=== PATIENT | female | born 1955 | race Caucasian/White ===

== ENCOUNTER 2017-02-20 10:49 | Inpatient (IN) ==
--- NOTE | 2017-02-19 21:37 | Discharge Summary ---
<Ora Day - Last Filed: 02/19/17 21:35> Date of Encounter: 02/19/17 - Discharge Diagnosis (1) Arthritis of left hip Priority: Primary Status: Acute (2) Status post total hip replacement, left Priority: Primary Status: Acute (3) CAD (coronary artery disease) Priority: Secondary Status: Chronic Qualifiers: Coronary Disease-Associated Artery/Lesion type: bypass graft [place] vs. transplanted heart: [place] heart Associated angina: without angina Qualified Code(s): I25.810 - Atherosclerosis of coronary artery bypass graft(s) without angina pectoris (4) HTN (hypertension) Priority: Secondary Status: Chronic Qualifiers: Hypertension type: essential hypertension Qualified Code(s): I10 - Essential (primary) hypertension (5) DMII (diabetes mellitus, type 2) Priority: Secondary Status: Chronic Qualifiers: Diabetes mellitus complication status: without complication Diabetes mellitus halfway insulin use: unspecified termite control service representative insulin use status Qualified Code(s): E11.9 - Type 2 diabetes mellitus without complications (6) History of CVA (cerebrovascular accident) Priority: Secondary Status: Chronic (7) History of SD (myocardial infarction) Priority: Secondary Status: Chronic (8) Left leg weakness Priority: Secondary Status: Chronic - Discharge Medications Home Medications: Albuterol Sulfate [Albuterol Inhaler] 2 puff IH BID PRN 06/20/15 [History] Beclomethasone Diprop 80mcg [QVAR 80 mcg] 2 puff IH BIDR 06/20/15 [History] Clopidogrel [Plavix] 75 mg PO DAILY 06/20/15 [History] GlipiZIDE [Glucotrol] 2.5 mg PO DAILY 06/20/15 [History] Isosorbide MONOnitrate (24 HR) [Imdur] 30 mg PO DAILY 06/20/15 [History] Lisinopril [Zestril] 5 mg PO DAILY 06/20/15 [History] Montelukast [Singulair] 10 mg PO HS 06/20/15 [History] Nitroglycerin [Nitrostat] 0.4 mg SL Q5M PRN 06/20/15 [History] Ropinerole [Requip] 2 mg PO HS 06/20/15 [History] Rosuvastatin [Crestor] 40 mg PO HS 12/12/15 [History] Topiramate [Topamax] 75 mg PO BID 06/20/15 [History] Docusate [Colace] 100 mg PO BID 09/23/15 [History] Mirtazapine 7.5 mg PO HS 09/23/15 [History] Aspirin Enteric Coated [Aspirin EC] 325 mg PO DAILY #21 02/19/17 [Rx] OxyCODONE Immed Rel [Roxicodone 5 MG] 5 - 10 mg PO Q6HR PRN #40 tablet 02/19/17 [Rx] Aspirin [Lo-Dose Aspirin EC] 81 mg PO DAILY 02/20/17 [History] Cetirizine HCl/Pseudoephedrine [Cetirizine-Pse ER 5-120 mg Tab] 1 each PO DAILY 02/20/17 [History] Omeprazole [PriLOSEC] 20 mg PO DAILY 02/20/17 [History] Tizanidine HCl 4 mg PO TID PRN 02/20/17 [History] Allergies/Adverse Reactions: Allergies carbamazepine [From Tegretol] Allergy (Verified 02/20/17 11:22) Hives atorvastatin [From Lipitor] Adverse Reaction (Verified 02/20/17 11:22) See Comments liver damage divalproex sodium [From Depakote] Adverse Reaction (Verified 02/20/17 11:22) See Comments pancreatic damage levetiracetam [From Keppra] Adverse Reaction (Verified 02/20/17 11:22) Headache Primary care physician: Naman Lowery DO - Patient Status Disposition: Transfer Inpatient Rehab Fac Condition: Good - Discharge Instructions Follow Up With: Naman oLwery DO [Primary Care Provider] - - Hospital Course Hospital course: Ms. Thomson is a 62 year old female - Time Spent with Patient Total time spent providing and/or coordinating discharge services: <Jamar Wisdom - Last Filed: 02/22/17 06:21> Date of Encounter: 02/22/17 Time of Encounter: 06:20 - Discharge Diagnosis (1) Status post total hip replacement, left Priority: Primary Status: Acute (2) CAD (coronary artery disease) Priority: Secondary Status: Chronic Qualifiers: Coronary Disease-Associated Artery/Lesion type: bypass graft [place] vs. transplanted heart: [place] heart Associated angina: without angina Qualified Code(s): I25.810 - Atherosclerosis of coronary artery bypass graft(s) without angina pectoris (3) HTN (hypertension) Priority: Secondary Status: Chronic Qualifiers: Hypertension type: essential hypertension Qualified Code(s): I10 - Essential (primary) hypertension (4) DMII (diabetes mellitus, type 2) Priority: Secondary Status: Chronic Qualifiers: Diabetes mellitus complication status: without complication Diabetes mellitus termite control service representative insulin use: unspecified termite control service representative insulin use status Qualified Code(s): E11.9 - Type 2 diabetes mellitus without complications (5) History of CVA (cerebrovascular accident) Priority: Secondary Status: Chronic (6) History of SD (myocardial infarction) Priority: Secondary Status: Chronic (7) Left leg weakness Priority: Secondary Status: Chronic (8) Avascular necrosis of bone of left hip Priority: Primary Status: Chronic (9) Acute blood loss anemia Priority: Primary Status: Acute Primary care physician: Naman Lowery DO - Patient Status Functional capacity at discharge: uses cane/walker Overall status at discharge: patient is progressing back to baseline - Hospital Course Hospital course: Ms. Thomson is a 62 year old female Status post left total hip replacement. Patient with a hemoglobin 8.0 received 2 units of packed red blood cells. Discharge stable condition received antibiotics and physical therapy postoperatively. Follow-up in A week. - Time Spent with Patient Total time spent providing and/or coordinating discharge services:
[2017-02-20] MEDS ORDERED: CeFAZolin Pre 2,000 MG/100 ML 2,000 MG/100 ML BAG IVPB ONE (11:10)
[2017-02-20] MEDS ORDERED: Albuterol 2.5 MG/3 ML NEBULIZER IH ONE (11:10)
--- NOTE | 2017-02-20 11:26 | Physician Discharge Referral ---
ExtendedCare Referral Info Transfer To: [facility] Provider in Charge after Transfer: PCP Institutional Level of Care: Skilled - Diagnosis (1) Arthritis of left hip Priority: Primary Status: Acute (2) Status post total hip replacement, left Priority: Primary Status: Acute (3) CAD (coronary artery disease) Priority: Secondary Status: Chronic (4) HTN (hypertension) Status: Chronic (5) DMII (diabetes mellitus, type 2) Priority: Secondary Status: Chronic (6) History of CVA (cerebrovascular accident) Priority: Secondary Status: Chronic (7) History of SD (myocardial infarction) Priority: Secondary Status: Chronic (8) Left leg weakness Priority: Secondary Status: Chronic Expected Duration of Placement: < 30 days Prognosis: Good Aware of Diagnosis: Patient Aware of Prognosis: Patient - Transfer Medications Prescriptions: OxyCODONE Immed Rel [Roxicodone 5 MG] 5 - 10 mg PO Q6HR PRN #40 tablet PRN Reason: Pain Aspirin Enteric Coated [Aspirin EC] 325 mg PO DAILY #21 Home Medications: Albuterol Sulfate [Albuterol Inhaler] 2 puff IH BID 06/20/15 [History] Beclomethasone Diprop 80mcg [Qvar 80 mcg] 2 puff IH BIDR 06/20/15 [History] Cetirizine HCl [Zyrtec] 10 mg PO DAILY 06/20/15 [History] Clopidogrel [Plavix] 75 mg PO DAILY 06/20/15 [History] Cyanocobalamin/FA/Pyridoxine [Folbic Tablet] 1 tab PO DAILY 06/20/15 [History] Divalproex (12 HR) [Depakote (12 HR)] 250 mg PO BID 06/20/15 [History] Divalproex (12 HR) [Depakote (12 HR)] 500 mg PO BID 06/20/15 [History] Garlic 1,000 mg PO DAILY 06/20/15 [History] GlipiZIDE [Glucotrol] 2.5 mg PO DAILY 06/20/15 [History] Isosorbide MONOnitrate (24 HR) [Imdur] 30 mg PO DAILY 06/20/15 [History] Lisinopril [Zestril] 5 mg PO DAILY 06/20/15 [History] Montelukast [Singulair] 10 mg PO DAILY 06/20/15 [History] Nitroglycerin [Nitrostat] 0.4 mg SL Q5M PRN 06/20/15 [History] Pantoprazole Sodium [Protonix] 40 mg PO DAILY 06/20/15 [History] Ropinerole [Requip] 2 mg PO HS 06/20/15 [History] Rosuvastatin [Crestor] 40 mg PO HS 06/20/15 [History] Topiramate [Topamax] 50 mg PO HS 06/20/15 [History] Docusate [Colace] 100 mg PO BID 09/23/15 [History] Ezetimibe [Zetia] 10 mg PO DAILY 09/23/15 [History] Mirtazapine 7.5 mg PO HS 09/23/15 [History] Ondansetron ODT [Zofran ODT] 4 mg SL Q8HR PRN #10 tab.rapdis 09/23/15 [Rx] Zonisamide [Zonegran] 100 mg PO DAILY 09/23/15 [History] Ondansetron ODT [Zofran ODT] 8 mg SL Q12HR PRN #5 tab.rapdis 12/02/15 [Rx] Aspirin Enteric Coated [Aspirin EC] 325 mg PO DAILY #21 02/19/17 [Rx] OxyCODONE Immed Rel [Roxicodone 5 MG] 5 - 10 mg PO Q6HR PRN #40 tablet 02/19/17 [Rx] Allergies/Adverse Reactions: Allergies carbamazepine [From Tegretol] Allergy (Verified 02/20/17 11:22) Hives atorvastatin [From Lipitor] Adverse Reaction (Verified 02/20/17 11:22) See Comments liver damage divalproex sodium [From Depakote] Adverse Reaction (Verified 02/20/17 11:22) See Comments pancreatic damage levetiracetam [From Keppra] Adverse Reaction (Verified 02/20/17 11:22) Headache - Respiratory Orders None Smoking Cessation: Smoking cessation has been advised. For more information, call the [place] Tobacco Quit Line at 6-252-BDEU-NOW. - Ancillary Orders May use pressure relief devices daily prn, May go on REUBEN w/family/respon republican w /meds at nurse discretion PRN - Mobility Orders Chair, Ambulate - Rehabiliation Orders Rehab Potential: Good Rehab Orders: ROM Exercises, Evaluation for Physical Therapy, Evaluation for Occupational Therapy - Treatments Skin tear care topically daily PRN per policy List/Other: Left THR Opsite dressing, leave intact until first post-operative visit. If dressing becomes >50% saturated, contact office, remove dressing and place appropriate dressing in its place. Do not allow for dressing to get wet. Vincent in place. Plan to remove day #14-21 PT: Precautions x 6 weeks - Total Hip Precautions. Apply cold therapy wrap 3-6x/day for 20 minutes at a time. Encourage ambulation throughout the day and incentive spirometer 10x/hour. Elevate affected extremity above heart as tolerated. Brace: Keep hip abduction brace on at night x 6 weeks. - Diet Orders Regular CERTIFICATION: I certify that the transfer of the above named patient to an Extended Care Facility is necessary for the continuing treatment of the diagnosis listed. The above information is true and accurate reflection of patient's current condition. Confidential - Redisclosure prohibited without a patient's written consent.
--- NOTE | 2017-02-20 11:30 | History & Physical Report ---
Date of Encounter: 02/20/17 Time of Encounter: 11:29 24 Hour HP Update - Instructions Instructions: If the History and Physical is less than 30 days old and was completed prior to A.M. admission and or procedure and has NOT been updated on calendar day of procedure please complete this update prior to performing procedure. - Update Patient reports changes in Medical Condition: No Changes in examination, assessment, or condition: No Changes in Medication: No Preop tests/diagnostics Reviewed: Yes Surgery Remains Indicated: Yes Consent for Planned Operative Procedure(s) Verified: Yes - Pre-Operative Checklist Preoperative Checklist Indicated: No Prophylactic Antibiotic Ordered: Yes Is VTE Prophylaxis Indicated?: Yes
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
[2017-02-20] MEDS ORDERED: *HR* Succinylcholine 200 MG/10 ML VIAL IVP ONE (13:56)
[2017-02-20] MEDS ORDERED: *HR* Propofol 200 MG/20 ML VIAL IVP ONE (13:56)
[2017-02-20] MEDS ORDERED: *HR* FentaNYL (PF) 100 MCG/2 ML VIAL ONE (13:56)
[2017-02-20] MEDS ORDERED: Lidocaine -MPF 2% 2 ML VIAL ONE (13:56)
[2017-02-20] MEDS ORDERED: Dexamethasone 4 MG/ML VIAL ONE (13:56)
[2017-02-20] MEDS ORDERED: Ondansetron 4 MG/2 ML VIAL ONE (13:56)
[2017-02-20] MEDS ORDERED: Lidocaine -MPF 4% 5 ML AMPUL ONE ×2 (13:59)
[2017-02-20] MEDS ORDERED: Ondansetron 4 MG/2 ML VIAL IVP PRN (14:25)
[2017-02-20] MEDS: Ringers Solution, Lactated 1,000 ML IVC SCH ×3 (15:13→18:57)
--- NOTE | 2017-02-20 15:58 | Orthopedic Operative Note ---
Date of procedure: 02/20/17 Pre-op diagnosis: Left hip avascular necrosis Post-op diagnosis: same Procedure: Procedure: Left Total Hip Replacment Estimated blood loss: 210 cc Hardware: Metal and polyethylene replacement. Biomet DM Cup: 54 G7 fin cup Femoral size 11 echo full profile lateralized stem Head: 6 head with Yadira Procedural Notes: Avascular necrosis changes left lateral head Operative procedure: The patient was brought to the operating room and placed on the operating room table. After general anesthesia was administered the patient was placed in the lateral decubitus position with the operative leg up. All pressure points were padded appropriately and the head was stabilized in the neutral position. The operative extremity was prepped and draped in the sterile surgical fashion patient received IV antibiotic prior to skin incision. A standard posterior approach is made to the operative hip, the incision was made through the skin and subcutaneous tissue hemostasis was obtained with Bovie cautery. Using careful sharp dissection the fascia was identified and incised exposing the external rotators. The external rotators were released off the greater trochanter and tagged with #2 FiberWire suture. The capsule was T'd open and the hip was brought into internal rotation. Patient noted to have avascular necrosis changes femoral head. The femoral neck cut was made at the appropriate level. An anterior capsulotomy was performed for the anterior retractor. Soft tissues removed from the acetabulum. Acetabulum was first reamed medially, and then reamed in 15 degrees of anteversion and 45 degrees off the horizontal. It was reamed up to the appropriate size 54 The appropriate-sized 54 acetabular cup was impacted in place in 15 degrees of anteversion and 45 degrees off the horizontal. This had good fit and fixation. The hip was brought back in to internal rotation and prepared with the boxcar weigher followed by the canal finder followed by broaching process in 20 degrees anteversion. It was broached up to the appropriate size 11. The femoral implant was impacted in place in 20 degrees of anteversion. Trial reduction found the hip to be stable with 6 head and Yadira. The trials were removed and the real implants were impacted in place. The hip was reduced, patient had apparent equal leg lengths. The hip had excellent stability with forward flexion to 90 degrees adduction of 30 degrees and internal rotation of 60 degrees. The hip had no shuck. The hips after 2 minutes with a Betadine saline solution. It was irrigated out with 2 L of pulse irrigation. The PA closed the hip. Fascia was closed with a running #2 PDS suture. The deep tissue was irrigated and closed deep with #1 PDS suture superficially with 0 PDS suture and skin was closed with Dermabond and skin esvin. The patient was placed in a sterile dressing and abduction pillow. The patient was extubated and transferred to the recovery room in stable condition. Anesthesia: GETA Surgeon: Jamar Wisdom Condition: stable Disposition: PACU
[2017-02-20] MEDS: *HR* HYDROmorphone (PF) 1 MG/ML SYRINGE IVP PRN ×5 (16:30→20:20)
[2017-02-20 16:48] LABS: Hemoglobin 9.6 g/dL (11.5-15.4)
[2017-02-20] MEDS ORDERED: Acetaminophen IV 1,000 MG/100 ML INFUS..BTL IVPB ONE (17:02)
[2017-02-20] MEDS ORDERED: Acetaminophen IV 1,000 MG/100 ML INFUS..BTL ONE (17:04)
--- NOTE | 2017-02-20 17:25 | Anesthesia Evaluation Post Op ---
Date of Encounter: 02/20/17 Time of Encounter: 17:25 - Vital Signs Vital Signs: Vital Signs - Last 8 Hours Temp Pulse Resp BP Pulse Ox 02/20/17 17:19 97.3 F L 92 16 110/66 95 02/20/17 17:09 92 16 103/68 97 02/20/17 16:59 90 18 102/61 97 02/20/17 16:49 97.4 F L 93 18 98/72 98 02/20/17 16:39 92 18 103/75 99 02/20/17 16:29 92 16 132/82 98 02/20/17 16:19 97.2 F L 90 12 123/76 100 02/20/17 11:18 98.1 F 85 18 123/73 96 Intake and Output 02/20/17 02/20/17 02/20/17 07:59 15:59 23:59 Intake Total 1100 / 1100 Output Total 210 / 210 Balance 890 / 890 Intake: IV Fluids 1100 / 1100 Lactated Ringers 1,000 ML 1000 / 1000 @ 25 mls/hr IVC .Q24H RANDI Rx#:[id number] Ancef Premix 2,000 MG/100 100 / 100 ML 2,000 mg In 100 ml @ 200 mls/hr IVPB PREOP ONE Rx#:[id number] Output: Urine 0 / 0 Estimated Blood Loss 210 / 210 Other: Weight 83.007 kg Blood Glucose* 125 Patient Weight 02/20/17 23:59 Weight 83.007 kg - Lungs Lungs: Clear Ascult./Percussion - Airway Airway: Non-obstructed - Cardiovascular Regular Rate, Baseline Rhythm - Mental Status Mental Status: Alert & Oriented, Answers Appropriately - Pain Pain Scale: 0 Pain Scale used: Numeric (1 - 10) - Nausea Vomiting Nausea Vomiting: Not Present - Hydration Hydration: Tolerates oral liquids - Discharge PostOp Status: Transfer Patient to floor
[2017-02-20] MEDS ORDERED: *HR* Enoxaparin 30 MG/0.3 ML SYRINGE SQ SCH (18:00)
[2017-02-20] MEDS ORDERED: tiZANidine 4 MG TABLET PO PRN (18:19)
[2017-02-20] MEDS ORDERED: Dextrose Gel 15 GM PO PRN ×2 (18:19)
[2017-02-20] MEDS ORDERED: Naloxone 0.4 MG/ML INJ IVP PRN (18:19)
[2017-02-20] MEDS ORDERED: Temazepam 15 MG CAPSULE PO PRN (18:19)
[2017-02-20] MEDS ORDERED: Nitroglycerin 0.4 MG TAB.SUBL SL PRN (18:19)
[2017-02-20] MEDS ORDERED: D5% in Water 1,000 ML IVC PRN (18:19)
[2017-02-20] MEDS ORDERED: Sennosides 8.6 MG TABLET PO PRN (18:19)
[2017-02-20] MEDS ORDERED: *HR* OxyCODONE Immed Rel 5 MG TABLET PO PRN (18:19)
[2017-02-20] MEDS ORDERED: *HR* Dextrose 50 % in Water (Syg) 50 ML SYRINGE IVP PRN (18:19)
[2017-02-20] MEDS ORDERED: MOM Conc 10 ML UD.LIQ PO PRN (18:19)
[2017-02-20] MEDS: Insulin LISPRO 300 UNITS/3 ML VIAL SQ SCH ×2 (18:41→20:11)
[2017-02-20] MEDS: *HR* OxyCODONE Immed Rel 5 MG TABLET PO PRN (19:00)
[2017-02-20] MEDS: Ascorbic Acid 500 MG TABLET PO SCH (19:00)
[2017-02-20] MEDS: rOPINIRole 1 MG TABLET PO SCH (19:37)
[2017-02-20] MEDS: Topiramate 25 MG TABLET PO SCH (19:38)
[2017-02-20] MEDS: Mirtazapine 15 MG TABLET PO SCH (19:39)
[2017-02-20] MEDS: ceFAZolin 2,000 MG in D5% in Water 100 ML IVPB SCH (19:45)
[2017-02-20] MEDS: Ondansetron 4 MG/2 ML VIAL IVP PRN (21:07)
[2017-02-20] MEDS: Beclomethasone 80mcg MDI IH SCH (22:07)
[2017-02-21] MEDS: *HR* OxyCODONE Immed Rel 5 MG TABLET PO PRN ×4 (00:05→21:43)
[2017-02-21] MEDS: ceFAZolin 2,000 MG in D5% in Water 100 ML IVPB SCH (02:08)
[2017-02-21 04:55] LABS: Hematocrit 29.4 % (35.3-44.9); Hemoglobin 9.2 g/dL (11.5-15.4)
[2017-02-21 05:06] LABS: BUN/Creatinine Ratio 12 (6-26); Blood Urea Nitrogen 13 mg/dL (7-20); Calcium 9.1 mg/dL (8.6-10.8); Carbon Dioxide 23 mEq/L (19-29); Chloride 105 mEq/L (98-109); Glucose 182 mg/dL (70-99); Osmolality,Calculated 287 (280-300); Potassium 4.1 mEq/L (3.5-4.5); Sodium 136 mEq/L (136-145); eGFR For African Americans > 60 (> 60); eGFR For Non-African Americans 51 (> 60)
[2017-02-21] MEDS: *HR* Enoxaparin 30 MG/0.3 ML SYRINGE SQ SCH ×2 (05:25→17:34)
[2017-02-21] MEDS: Topiramate 25 MG TABLET PO SCH ×2 (07:50→21:43)
[2017-02-21] MEDS: Aspirin Enteric Coated 81 MG Tablet PO SCH (07:51)
[2017-02-21] MEDS: Insulin LISPRO 300 UNITS/3 ML VIAL SQ SCH ×4 (07:52→21:44)
[2017-02-21] MEDS: Loratadine/Pseudophed (12 HR) 1 EACH TABLET PO SCH (07:52)
[2017-02-21] MEDS: Ascorbic Acid 500 MG TABLET PO SCH ×2 (07:52→15:51)
[2017-02-21] MEDS: Isosorbide MONOnitrate (24 HR) 30 MG TAB.ER.24H PO SCH (07:52)
[2017-02-21] MEDS: Multivit/Ca/Min/Fe/FA 1 TAB TABLET PO SCH (07:52)
[2017-02-21] MEDS: *HR* GlipiZIDE 5 MG TABLET PO SCH (07:52)
[2017-02-21] MEDS: Beclomethasone 80mcg MDI IH SCH ×2 (08:22→22:18)
[2017-02-21] MEDS: Ringers Solution, Lactated 1,000 ML IVC SCH (11:07)
--- NOTE | 2017-02-21 12:25 | Event Note ---
Date of Encounter: 02/21/17 Time of Encounter: 12:25 PCR - POD#1 - Left THR, history of CVA and LLE weakness Patient seen at bedside. Pain control: adequate Participating in PT. All questions and concerns addressed. Educated on use of incentive spirometer, ambulation, and hydration. Patient educated on post-operative restrictions and care. Addressed: D/C plan: ECF - on Plavix
[2017-02-21] MEDS: *HR* HYDROmorphone (PF) 1 MG/ML SYRINGE IVP PRN ×2 (15:51→23:11)
[2017-02-21] MEDS: Ondansetron 4 MG/2 ML VIAL IVP PRN ×2 (15:51→23:11)
--- NOTE | 2017-02-21 16:55 | Orthopedics Progress Note ---
Date of Encounter: 02/21/17 Time of Encounter: 08:00 - Assessment and Plan (1) Arthritis of left hip Current Visit: Yes Status: Chronic POD#1 - seen by Leticia Patient doing well, A&O in bed, Pain controlled. LLE weakness secondary to history of CVA Vitals stable. Afebrile. H/H - Stable - 9.2.4 - asymptomatic Plan: LLE: WBAT D/C to ECF * pending Auth (2) Status post total hip replacement, left Current Visit: Yes Status: Acute (3) CAD (coronary artery disease) Current Visit: Yes Status: Chronic Qualifiers: Coronary Disease-Associated Artery/Lesion type: bypass graft [place] vs. transplanted heart: [place] heart Associated angina: without angina Qualified Code(s): I25.810 - Atherosclerosis of coronary artery bypass graft(s) without angina pectoris (4) HTN (hypertension) Current Visit: Yes Status: Chronic Qualifiers: Hypertension type: essential hypertension Qualified Code(s): I10 - Essential (primary) hypertension (5) DMII (diabetes mellitus, type 2) Current Visit: Yes Status: Chronic Qualifiers: Diabetes mellitus complication status: without complication Diabetes mellitus skilled nursing insulin use: unspecified laster hand insulin use status Qualified Code(s): E11.9 - Type 2 diabetes mellitus without complications (6) History of CVA (cerebrovascular accident) Current Visit: Yes Status: Chronic (7) History of SD (myocardial infarction) Current Visit: Yes Status: Chronic (8) Left leg weakness Current Visit: Yes Status: Chronic Subjective Principal diagnosis: Left THR - 02/20/17 Interval history: Left THR 02/20/17 POD#1 - seen by Leticia Patient doing well, A&O in bed, Pain controlled. LLE weakness secondary to history of CVA Vitals stable. Afebrile. H/H - Stable - ..4 - asymptomatic LLE: Swelling noted to Left hip, no erythema or ecchymosis noted. TEnderness to Left hip. No calf tenderness or warmth noted. ROM limited. NV intact distally. Plan: LLE: WBAT D/C to ECF * pending Auth Objective Vital signs: Vital Signs Temp Pulse Resp BP Pulse Ox 02/21/17 11:31 98.0 F 99 20 107/63 97 02/21/17 08:22 16 96 02/21/17 06:39 97.8 F 74 16 103/63 96 02/21/17 03:45 97.8 F 75 17 103/60 95 02/20/17 23:45 97.6 F 80 17 121/71 95 02/20/17 22:07 17 94 02/20/17 20:20 123/70 02/20/17 19:04 81 15 101/53 94 02/20/17 17:29 97.5 F L 90 16 112/68 95 02/20/17 17:19 97.3 F L 92 16 110/66 95 02/20/17 17:09 92 16 103/68 97 02/20/17 16:59 90 18 102/61 97 Intake and Output 02/21/17 02/21/17 02/21/17 07:59 15:59 23:59 Intake Total 1480 / 1480 Output Total 200 / 200 600 / 600 Balance -200 / -200 880 / 880 Intake: IV Fluids 1000 / 1000 Lactated Ringers 1,000 ML 1000 / 1000 @ 75 mls/hr IVC .[id number] RANDI Rx#:[id number] Oral 480 / 480 Output: Urine 200 / 200 600 / 600 Other: Meal Breakfast Percent of Meal Consumed 100% Weight 83.2 kg Blood Glucose* 154 125 Patient Weight 02/21/17 23:59 Weight 83.2 kg Incision: clean and dry - Labs CBC & BMP: 02/21/17 04:29 02/21/17 04:29 Labs: Abnormal lab results Hgb 9.2 g/dL (11.5-15.4) L 02/21/17 04:29 Hct 29.4 % (35.3-44.9) L 02/21/17 04:29 Est GFR (Non-Af Amer) 51 (> 60) L 02/21/17 04:29 Glucose 182 mg/dL (70-99) H 02/21/17 04:29 POC Glucose 125 (58-89) H 02/21/17 12:07 - VTE Documentation of Mechanical Device: Venous foot pump, device Consult Discharge Plan - Plan Referrals: Naman Lowery DO [Primary Care Provider] -
[2017-02-21] MEDS: rOPINIRole 1 MG TABLET PO SCH (21:43)
[2017-02-21] MEDS: Mirtazapine 15 MG TABLET PO SCH (21:43)
[2017-02-22] MEDS: *HR* OxyCODONE Immed Rel 5 MG TABLET PO PRN ×5 (02:53→21:15)
[2017-02-22] MEDS: *HR* HYDROmorphone (PF) 1 MG/ML SYRINGE IVP PRN ×2 (04:15→22:49)
[2017-02-22] MEDS: *HR* Enoxaparin 30 MG/0.3 ML SYRINGE SQ SCH ×2 (05:46→16:18)
[2017-02-22 05:52] LABS: Hematocrit 25.5 % (35.3-44.9)
[2017-02-22 06:11] LABS: BUN/Creatinine Ratio 15 (6-26); Blood Urea Nitrogen 13 mg/dL (7-20); Calcium 8.8 mg/dL (8.6-10.8); Carbon Dioxide 24 mEq/L (19-29); Chloride 106 mEq/L (98-109); Glucose 143 mg/dL (70-99); Osmolality,Calculated 283 (280-300); Potassium 3.9 mEq/L (3.5-4.5); Sodium 135 mEq/L (136-145); eGFR For African Americans > 60 (> 60); eGFR For Non-African Americans > 60 (> 60)
--- NOTE | 2017-02-22 06:20 | Orthopedics Progress Note ---
Date of Encounter: 02/22/17 Time of Encounter: 06:20 - Assessment and Plan (1) Status post total hip replacement, left Current Visit: Yes Status: Acute (2) CAD (coronary artery disease) Current Visit: Yes Status: Chronic Qualifiers: Coronary Disease-Associated Artery/Lesion type: bypass graft [place] vs. transplanted heart: [place] heart Associated angina: without angina Qualified Code(s): I25.810 - Atherosclerosis of coronary artery bypass graft(s) without angina pectoris (3) HTN (hypertension) Current Visit: Yes Status: Chronic Qualifiers: Hypertension type: essential hypertension Qualified Code(s): I10 - Essential (primary) hypertension (4) DMII (diabetes mellitus, type 2) Current Visit: Yes Status: Chronic Qualifiers: Diabetes mellitus complication status: without complication Diabetes mellitus senior care insulin use: unspecified clinical services professional insulin use status Qualified Code(s): E11.9 - Type 2 diabetes mellitus without complications (5) History of CVA (cerebrovascular accident) Current Visit: Yes Status: Chronic (6) History of [place] (myocardial infarction) Current Visit: Yes Status: Chronic (7) Left leg weakness Current Visit: Yes Status: Chronic (8) Avascular necrosis of bone of left hip Current Visit: Yes Status: Chronic Subjective Principal diagnosis: Left THR - 02/20/17 Interval history: Patient was seen this morning doing well without complaints. Afebrile vital signs stable. Operative extremity: Neurovascularly intact Dressing clean dry and intact Calves nontender Assessment and plan: Continue with postoperative care Hemoglobin 8.0 transfuse 2 units discharge if approved after blood transfusion Objective Vital signs: Vital Signs Temp Pulse Resp BP Pulse Ox 02/22/17 00:00 98.5 F 111 21 121/77 95 02/21/17 22:19 22 98 02/21/17 21:00 100 02/21/17 19:35 99.2 F 110 18 115/71 98 02/21/17 16:54 98 F 106 20 110/61 100 02/21/17 11:31 98.0 F 99 20 107/63 97 02/21/17 08:22 16 96 02/21/17 06:39 97.8 F 74 16 103/63 96 Intake and Output 02/21/17 02/21/17 02/22/17 15:59 23:59 07:59 Intake Total 1480 / 1480 100 / 100 1600 / 1600 Output Total 600 / 600 Balance 880 / 880 100 / 100 1600 / 1600 Intake: IV Fluids 1000 / 1000 1000 / 1000 Lactated Ringers 1,000 ML 1000 / 1000 1000 / 1000 @ 75 mls/hr IVC .[id number] RANDI Rx#:[id number] Oral 480 / 480 100 / 100 600 / 600 Output: Urine 600 / 600 Other: Meal Breakfast Percent of Meal Consumed 100% # Voids 3 Blood Glucose* 125 162 - Labs CBC & BMP: 02/22/17 05:38 02/22/17 05:38 Labs: Abnormal lab results Hgb 8.0 g/dL (11.5-15.4) L 02/22/17 05:38 Hct 25.5 % (35.3-44.9) L 02/22/17 05:38 Sodium 135 mEq/L (136-145) L 02/22/17 05:38 Glucose 143 mg/dL (70-99) H 02/22/17 05:38 POC Glucose 162 (58-89) H 02/21/17 21:39 - VTE Documentation of Mechanical Device: Venous foot pump, device Consult Discharge Plan - Plan Referrals: Naman Lowery DO [Primary Care Provider] -
[2017-02-22] MEDS ORDERED: Furosemide 20 MG/2 ML VIAL IVP ONE (07:33)
[2017-02-22] MEDS: Insulin LISPRO 300 UNITS/3 ML VIAL SQ SCH ×4 (07:45→21:09)
[2017-02-22] MEDS: Isosorbide MONOnitrate (24 HR) 30 MG TAB.ER.24H PO SCH (07:46)
[2017-02-22] MEDS: *HR* GlipiZIDE 5 MG TABLET PO SCH (07:46)
[2017-02-22] MEDS: Aspirin Enteric Coated 81 MG Tablet PO SCH (07:46)
[2017-02-22] MEDS: Multivit/Ca/Min/Fe/FA 1 TAB TABLET PO SCH (07:47)
[2017-02-22] MEDS: Ascorbic Acid 500 MG TABLET PO SCH ×2 (07:47→16:17)
[2017-02-22] MEDS: Loratadine/Pseudophed (12 HR) 1 EACH TABLET PO SCH (07:47)
[2017-02-22] MEDS: Topiramate 25 MG TABLET PO SCH ×2 (07:47→21:14)
[2017-02-22] MEDS: Beclomethasone 80mcg MDI IH SCH ×2 (08:09→20:29)
[2017-02-22] MEDS ORDERED: 0.9 % Sodium Chloride 250 ML ONE ×2 (11:33→16:13)
--- NOTE | 2017-02-22 14:35 | Event Note ---
Date of Encounter: 02/22/17 Time of Encounter: 12:00 PCR - POD#2 - Left THR, history of CVA and LLE weakness *Receiving 2 units of PRBCs today secondary to drop in Hgb/Hct to 8.0/25.5 and symptomatic with fatigue, pallor, and per patient some weakness - post- operative anemia Patient seen at bedside. Pain control: adequate Participating in PT. All questions and concerns addressed. Educated on use of incentive spirometer, ambulation, and hydration. Patient educated on post-operative restrictions and care. Addressed: D/C plan: ECF - on Plavix
[2017-02-22] MEDS ORDERED: 0.9 % Sodium Chloride 1,000 ML ONE (17:48)
[2017-02-22] MEDS ORDERED: Acetaminophen IV 1,000 MG/100 ML INFUS..BTL IVPB ONE (18:03)
[2017-02-22] MEDS ORDERED: 0.9 % Sodium Chloride 1,000 ML IVC SCH (19:00)
[2017-02-22] MEDS: Mirtazapine 15 MG TABLET PO SCH (21:14)
[2017-02-22] MEDS: rOPINIRole 1 MG TABLET PO SCH (21:14)
[2017-02-22] MEDS: Ondansetron 4 MG/2 ML VIAL IVP PRN (22:51)
[2017-02-22 23:22] LABS: Bilirubin,Urine Small (Negative); Blood,Urine Negative (Negative); Clarity,Urine Clear (Clear); Color,Urine Yellow (Yellow); Glucose,Urine (UA) Normal (Normal); Ketones,Urine Negative (Negative); Leukocyte Esterase,Urine Negative (Negative); Nitrite,Urine Negative (Negative); Protein,Urine Negative (Neg-Trace); Specific Gravity,Urine 1.007 (1.010-1.025); Urobilinogen,Urine Normal (Normal)
[2017-02-23] MEDS: *HR* HYDROmorphone (PF) 1 MG/ML SYRINGE IVP PRN (02:39)
[2017-02-23] MEDS: *HR* Enoxaparin 30 MG/0.3 ML SYRINGE SQ SCH (06:54)
[2017-02-23] MEDS: *HR* OxyCODONE Immed Rel 5 MG TABLET PO PRN ×3 (06:55→15:20)
[2017-02-23] MEDS: Ascorbic Acid 500 MG TABLET PO SCH (06:55)
--- NOTE | 2017-02-23 07:54 | Orthopedics Progress Note ---
Date of Encounter: 02/23/17 Time of Encounter: 07:54 - Assessment and Plan (1) Status post total hip replacement, left Current Visit: Yes Status: Acute (2) CAD (coronary artery disease) Current Visit: Yes Status: Chronic Qualifiers: Coronary Disease-Associated Artery/Lesion type: bypass graft [place] vs. transplanted heart: [place] heart Associated angina: without angina Qualified Code(s): I25.810 - Atherosclerosis of coronary artery bypass graft(s) without angina pectoris (3) HTN (hypertension) Current Visit: Yes Status: Chronic Qualifiers: Hypertension type: essential hypertension Qualified Code(s): I10 - Essential (primary) hypertension (4) DMII (diabetes mellitus, type 2) Current Visit: Yes Status: Chronic Qualifiers: Diabetes mellitus complication status: without complication Diabetes mellitus skilled nursing insulin use: unspecified rn long term care insulin use status Qualified Code(s): E11.9 - Type 2 diabetes mellitus without complications (5) History of CVA (cerebrovascular accident) Current Visit: Yes Status: Chronic (6) History of [place] (myocardial infarction) Current Visit: Yes Status: Chronic (7) Left leg weakness Current Visit: Yes Status: Chronic (8) Avascular necrosis of bone of left hip Current Visit: Yes Status: Chronic (9) Acute blood loss anemia Current Visit: Yes Status: Acute Subjective Principal diagnosis: Left THR - 02/20/17 Interval history: Patient was seen this morning doing well without complaints. Afebrile vital signs stable. Operative extremity: Neurovascularly intact Dressing clean dry and intact [place]ves nontender Assessment and plan: Continue with postoperative care discharged today Objective Vital signs: Vital Signs Temp Pulse Resp BP Pulse Ox 02/23/17 07:17 97.5 F L 112 20 123/71 95 02/22/17 20:29 17 92 02/22/17 19:46 99.7 F H 68 19 100/64 95 02/22/17 17:53 101.7 F H 98 15 90/54 93 02/22/17 16:52 99.9 F H 104 15 87/52 98 02/22/17 16:37 98.8 F 110 16 90/44 95 02/22/17 14:47 98.6 F 113 15 100/51 93 02/22/17 12:10 99.4 F 120 16 101/60 93 02/22/17 11:55 98.6 F 120 15 106/64 93 02/22/17 10:14 98.5 F 109 16 128/73 95 02/22/17 08:09 16 93 Intake and Output 02/22/17 02/22/17 02/23/17 15:59 23:59 07:59 Intake Total 930 / 930 200 / 200 Output Total 1000 / 1000 Balance -70 / -70 200 / 200 Intake: IV Fluids 100 / 100 Ofirmev 1,000 mg/100 ml 1 100 / 100 ,000 mg In 100 ml @ 400 mls/hr IVPB ONCE ONE Rx#: [id number] Oral 630 / 630 Blood Product 300 / 300 100 / 100 Rbcs Leuko Poor As-1 300 / 300 Unit [id number] Rbcs Leuko Poor As-3 2nd 100 / 100 Unit [id number] Output: Urine 1000 / 1000 Other: Meal Lunch Percent of Meal Consumed 25% Blood Glucose* 166 133 128 - Labs CBC & BMP: 02/22/17 05:38 02/22/17 05:38 Labs: Abnormal lab results Hgb 8.0 g/dL (11.5-15.4) L 02/22/17 05:38 Hct 25.5 % (35.3-44.9) L 02/22/17 05:38 Sodium 135 mEq/L (136-145) L 02/22/17 05:38 Glucose 143 mg/dL (70-99) H 02/22/17 05:38 POC Glucose 162 (58-89) H 02/21/17 21:39 Ur Specific [place] 1.007 (1.010-1.025) L 02/22/17 23:05 Urine Bilirubin Small (Negative) H 02/22/17 23:05 - VTE Documentation of Mechanical Device: Venous foot pump, device Consult Discharge Plan - Plan Instructions: Diabetes Mellitus Type 2 in Adults (DC), Revision Total Joint Arthroplasty (DC) Referrals: Naman Lowery DO [Primary Care Provider] -
[2017-02-23] MEDS: Beclomethasone 80mcg MDI IH SCH (07:56)
[2017-02-23] MEDS: Insulin LISPRO 300 UNITS/3 ML VIAL SQ SCH ×2 (09:24→11:19)
[2017-02-23] MEDS: *HR* GlipiZIDE 5 MG TABLET PO SCH (09:42)
[2017-02-23] MEDS: Aspirin Enteric Coated 81 MG Tablet PO SCH (09:42)
[2017-02-23] MEDS: Loratadine/Pseudophed (12 HR) 1 EACH TABLET PO SCH (09:42)
[2017-02-23] MEDS: Topiramate 25 MG TABLET PO SCH (09:42)
[2017-02-23] MEDS: Isosorbide MONOnitrate (24 HR) 30 MG TAB.ER.24H PO SCH (09:42)
[2017-02-23] MEDS: Multivit/Ca/Min/Fe/FA 1 TAB TABLET PO SCH (09:43)
[2017-02-23 10:01] LABS: Hemoglobin 9.8 g/dL (11.5-15.4)
[2017-02-23 11:19] VITALS: BP 104/66
--- NOTE | 2017-02-23 11:32 | Event Note ---
Date of Encounter: 02/23/17 Time of Encounter: 11:28 PCR - POD#3 - Left THR, history of CVA and LLE weakness *Received 1.5 units of PRBCs 02/23 today secondary to drop in Hgb/Hct to 8.0/ 25.5 and symptomatic with fatigue, pallor, and per patient some weakness - post- operative anemia. She became febrile during 2nd unit, and blood was stopped. H/ H staple today. Patient seen at bedside. Pain control: adequate Participating in PT. All questions and concerns addressed. Educated on use of incentive spirometer, ambulation, and hydration. Patient educated on post-operative restrictions and care. Addressed: D/C plan: ECF - on Plavix
== END 2017-02-23 16:57 | DRG 301 ==
LOC: SAMDAY 10:49 → 3NENU 18:15
PROVIDERS: ADMIT Orthopaedic Surgery; ATTEND Orthopaedic Surgery